=== PATIENT | male | born 1955 | race Caucasian/White ===

== ENCOUNTER 2022-02-21 08:00 | Outpatient (RCR) | payer MEDICARE, OTHER, SELFPAY ==
--- NOTE | 2022-01-23 10:49 | PTOPEVAL1 ---
Assessment and note entered by Leeann Ng, PT, DPT Evaluation Information Assessment Status Evaluation Diagnosis R shoulder and upper back pain Onset chronic Subjective Information Pt states he has had issues with his R shoulder for a couple of years. He states this has not impaired his function now because he has learned to avoid the pain. He states he has never had great posture and he states when he is standing for too long he gets an achy pain in between his shoulders. He reports no pain at rest but a 7/10 at its worst . Reported Pain Level Pain Score 0: Self Report Assessment PT Clinical Summary Kush Kline presents to therapy today for his initial evaluation with a diagnosis of R shoulder and other chronic pain. Today he demonstrates functional ROM with active and passive limitations with end ROM. He demonstrates mild strength deficits on the R when compared to the L. He has forward and rounded posture with increased thoracic kyphosis and an increased forward head resting position. He demonstrates decreased cervical and thoracic mobility with palpation. Skilled physical therapy services are indicated to improve mobility, to manage pain, to improve strength, and to improve baseline mobility. Plan of Care Interventions Manual Therapy,Neuro Re-education,Patient/ Caregiver Educati,Therapeutic Activities, Therapeutic Exercise PT Services Indicated Yes Treatment Frequency and 2x/wk for 4 wks Duration These treatments will address the objective and functional deficits as defined above. The patient will be advanced safely and appropriately in order for the patient to progress towards his/her prior level of function. Additional exercises will be introduced and as well as a comprehensive home exercise program upon discharge, if needed, ?to ensure carryover of functional gains achieved in the clinic. This treatment plan has been reviewed and agreement upon by the patient.
--- NOTE | 2022-02-15 08:40 | PCPTNOTE ---
Patient called & cancelled scheduled appointment this date due to being out of town.
--- NOTE | 2022-02-21 08:46 | PTOPDC ---
Assessment and note entered by Leeann Ng, PT, DPT Evaluation Information Assessment Status Discharge Diagnosis R shoulder and upper back pain Onset chronic Subjective Information Pt states overall he states he is getting better. He states his neck is less stiff and his shoulder has less pain. He reports excellent compliance with his HEP. He states he is not sure how much his flexibility has improved. He states overall he has learned a lot in therapy. He reports 40% improvement in overall symptoms. He states qualitatively he has improved a lot. Reported Pain Level Pain Score 0,0: Self Report Assessment PT Clinical Summary Kush Kline presents to therapy today for his progress report following 6 visits of skilled therapy and participation in a home exercise program. Today he demonstrates minor improvements in his shoulder ROM and thoracic mobility. He reports a decrease in pain with little to no sharp stabbing pains in the last month. He states he would like to continue his HEP at home and possibly return in the summer if things have not improved the way he wants. He is to be discharged at this time with instructions to continue her HEP . If he is to return in the future he will need a new order. Plan of Care PT Services Indicated No Treatment Frequency and to be discharged Duration
== END 2022-02-22 15:41 | disposition home or self-care (01) ==
LOC: ANHGOSHPT 08:00
PROVIDERS: PCP Family Medicine; Visit Provider Family Medicine
DX: M25.511 Pain in right shoulder (principal); G89.29 Other chronic pain; M67.80 Other specified disorders of synovium and tendon, unspecified site
CPT/HCPCS: 97110; 97112; 97140; 97161

== ENCOUNTER 2022-05-16 11:39 | Emergency (ER) | payer MEDICARE, SELFPAY ==
[2022-05-16 11:52] VITALS: BP 137/93; PULSE 68; RESP 16; TEMP 36.2; O2SAT 100
--- NOTE | 2022-05-16 12:15 | ED.URI ---
HPI - URI/Sore Throat General Chief Complaint: Upper Respiratory Infection Stated Complaint: cough,congestion, rt eye infection Time Seen by Provider: 05/16/22 12:14 Source: patient Mode of arrival: ambulatory Limitations: no limitations History of Present Illness HPI Narrative: patient is 66-year-old male that presents with cough, sore throat, right eye irritation and discharge. Patient states cough and sore throat started 3 days ago. And today right eye started using and became itchy. Reports grandson was recently diagnosed with strep. Has been taking dull some and NyQuil for symptoms with mild to no relief. denies any fever, chills, ear pain, and shortness of breath. Related Data Home Medications Medication Instructions Recorded Confirmed cetirizine 10 mg tablet 10 mg PO DAILY PRN Allergy Symptoms 01/03/22 05/16/22 Allergies Allergy/AdvReac Type Severity Reaction Status Date / Time No Known Allergies Allergy Mild Verified 05/16/22 12:02 Review of Systems Review of Systems: All systems reviewed & are unremarkable except as noted in HPI and below Constitutional: Constitutional: Denies body ache(s), Denies fever(s), Denies headache(s), Denies malaise and Denies weakness Eyes: Eyes: Reports eye discharge, Reports irritation and Denies loss of vision ENT: Denies otalgia, Reports headache(s), Denies nasal congestion, Denies sinus pain and Reports sore throat Cardiovascular: Cardiovascular: Denies chest pain, Denies irregular heart rhythm and Denies dyspnea Respiratory: Respiratory: Reports cough and Denies dyspnea Gastrointestinal: Gastrointestinal: Denies abdominal pain, Denies melena, Denies hematochezia, Denies diarrhea, Denies nausea and Denies vomiting Musculoskeletal: Musculoskeletal: Denies back pain, Denies myalgias and Denies arthralgias Integumentary/Breasts: Skin/Breast: Denies pruritus and Denies rash Neurologic: Denies headache(s), Denies loss of vision and Denies weakness Psychiatric: Psychiatric: Reports no additional psychiatric complaints PMFSH Past Medical History Medical History Basal cell carcinoma (~06/2020) Diaphragmatic hernia without mention of obstruction or gangrene Gastritis/duodenitis HTN (hypertension) Mixed hyperlipidemia Nummular eczema Rotator cuff syndrome of right shoulder Family History Family History Mother Hypertension Father Family history of cardiovascular disease Family history of lung cancer Social History Social History (Updated 01/03/22 @ 13:32 by Augustus Baldwin MA) Smoking status: Never smoker Alcohol intake: current Substance use: never Lack of Transportation: No Lack of Food: Never True Current Housing: I Have Housing Concerned About Future Housing: No Difficulty Paying Gas/Electric Bills: No Difficulty Paying for Meds: No Currently Unemployed: No Difficulty w/ Childcare or Family Care: No Comments At time of signature, agree with nursing past medical, surgical, social and family history. There is no relevant family history pertinent to the presenting complaint. Exam Const: General: cooperative, healthy appearing, comfortable, no acute distress and well nourished Nutritional Appearance: well nourished Orientation/consciousness: patient oriented x3 Limitations: no limitations HENMT: Head: normal to inspection, normocephalic and atraumatic Ears: external ears normal and TM abnormal obstructed by cerumen bilateral Face/Nose/Sinus: Normal external nose present, normal facial exam, sinuses nontender and face symmetric Face and sinus: normal facial exam, sinuses nontender and face symmetric Mouth: Yes Normal oral and palatal mucosa present, Yes lip normal and Yes moist mucous membranes Teeth and gingiva: dentition normal Throat: posterior oropharynx normal, tonsils normal and uvula midline Eyes: General: appearanc
== END 2022-05-16 12:37 | disposition home or self-care (01) ==
PROVIDERS: Emergency Provider Nurse Practitioner Family; PCP Family Medicine
DX: H10.9 Unspecified conjunctivitis (principal); H61.20 Impacted cerumen, unspecified ear; I10 Essential (primary) hypertension; E78.2 Mixed hyperlipidemia; Z85.828 Personal history of other malignant neoplasm of skin
CPT/HCPCS: 87081; 87880; 99213; G0463

== ENCOUNTER 2022-06-26 09:37 | Emergency (ER) | payer MEDICARE, SELFPAY ==
[2022-06-26 09:46] VITALS: BP 130/85; PULSE 66; RESP 16; TEMP 36.4; O2SAT 100
--- NOTE | 2022-06-26 10:00 | ED.EYEPROB ---
HPI - Eye Problem General Chief complaint: Eye Problems Stated complaint: pink eye Time Seen by Provider: 06/26/22 10:00 Source: patient Mode of arrival: ambulatory Limitations: no limitations History of Present Illness HPI Narrative: Mr. Pacheco is a 67-year-old male patient presenting to the clinic today with complaints of possible right-sided conjunctivitis. He states his grand kids had conjunctivitis and give it to him. States that he used ofloxacin but does not think that this a got rid of the infection and entirely. States he noted some pus in his eye and his eye was matted shut this morning. Eye is very itchy and red. Related Data Home Medications Medication Instructions Recorded Confirmed fexofenadine 30 mg tablet 60 mg PO DAILY 06/26/22 06/26/22 Allergies Allergy/AdvReac Type Severity Reaction Status Date / Time No Known Allergies Allergy Mild Verified 06/26/22 09:53 Review of Systems Review of Systems: Pertinent positives per HPI. Patient denies any fever, chills, rash, headache, visual changes, dizziness, cough, runny nose, sore throat, shortness of breath, chest pain, palpitations, nausea, vomiting, diarrhea, constipation, abdominal pain, or any urinary issues. [facility] Past Medical History Medical History Basal cell carcinoma (~06/2020) Diaphragmatic hernia without mention of obstruction or gangrene Gastritis/duodenitis HTN (hypertension) Mixed hyperlipidemia Nummular eczema Rotator cuff syndrome of right shoulder Family History Family History Mother Hypertension Father Family history of cardiovascular disease Family history of lung cancer Social History Social History Smoking status: Never smoker Alcohol intake: current Substance use: never Lack of Transportation: No Lack of Food: Never True Current Housing: I Have Housing Concerned About Future Housing: No Difficulty Paying Gas/Electric Bills: No Difficulty Paying for Meds: No Currently Unemployed: No Difficulty w/ Childcare or Family Care: No Comments At the time of my signature, I reviewed and agree with the nursing past medical, surgical, social, and family history. There is no relevant family history pertinent to the patient complaint. Exam Narrative: General: Well-developed, well nourished, in no apparent distress Head: Normocephalic, atraumatic Eyes: Pupils equally round and reactive to light bilaterally, EOM intact, left sclera and conjunctive clear, right sclera and conjunctiva injected with mild lid swelling and yellow mucopurulent discharge. Ears: Bilateral ear canals impacted with cerumen, ear irrigation performed bilaterally, TMs intact and clear, ear canals clear without sign of trauma after irrigation, no drainage, improved hearing bilaterally. Nose: Nares patent, no discharge, no inflammation, no sinus tenderness. Mouth: Oropharynx without lesions or masses, good dentition, MMM. Neck: Supple, trachea midline, no enlargement of anterior or posterior cervical nodes, no thyroid masses or goiter palpable. Cardio: Regular rate and rhythm, s1 and s2 normal, no murmur appreciated. Resp: Clear to auscultation bilaterally anteriorly and posteriorly, no rhonchi, rales, wheezing or rubs Course Course Emergency Course: Portions of this record may have been created with voice recognition software. Level of Care: Express Care Visit Vital Signs Vital signs: Vital Signs Temperature 36.4 C 06/26/22 09:46 Pulse Rate 66 06/26/22 09:46 Respiratory Rate 16 06/26/22 09:46 Blood Pressure 130/85 06/26/22 09:46 Pulse Oximetry 100 06/26/22 09:46 Oxygen Delivery Room Air 06/26/22 09:46 Temperature 36.4 C 06/26/22 09:46 Pulse Rate 66 06/26/22 09:46 Respiratory Rate 16 06/26/22 09:46 Bl
== END 2022-06-26 10:26 | disposition home or self-care (01) ==
PROVIDERS: Emergency Provider Nurse Practitioner Family; PCP Family Medicine
DX: H10.31 Unspecified acute conjunctivitis, right eye (principal); H61.23 Impacted cerumen, bilateral; I10 Essential (primary) hypertension; E78.5 Hyperlipidemia, unspecified; Z85.828 Personal history of other malignant neoplasm of skin
CPT/HCPCS: 69210; 99213; G0463

== ENCOUNTER 2022-10-12 12:42 | Outpatient (CLI) | payer MEDICARE, SELFPAY | END 2022-10-12 12:43 | disposition home or self-care (01) | LOC: ANHAUDASC 12:43 | PROVIDERS: PCP Family Medicine; Visit Provider Otolaryngology | DX: H69.90 Unspecified Eustachian tube disorder, unspecified ear (principal) | CPT/HCPCS: 92557; 92567 ==

== ENCOUNTER → 2022-11-21 10:23 | Outpatient (CLI) | payer MEDICARE, SELFPAY ==
--- NOTE | ~2022-11-21 | XR_ITS ---
XR chest 2V DATE: 11/21/2022 10:49 INDICATION: Localized enlarged lymph nodes TECHNIQUE: 2 views COMPARISON: None FINDINGS: Chronic mild loss of height and anterior wedging of several midthoracic vertebral bodies. D egenerative spurring of the thoracic spine. Normal heart size. No hilar or mediastinal enlargement. No pulmonary infiltrate or consolidation, pleural effusion or pulmonary vascular congestion or pneumo thorax is detected. IMPRESSION: No active cardiopulmonary disease Reviewed, dictated and finalized at location [facility].
== END ==
PROVIDERS: PCP Family Medicine; Visit Provider Family Medicine
DX: R59.0 Localized enlarged lymph nodes (principal)
CPT/HCPCS: 71046

== ENCOUNTER → 2022-11-28 14:22 | Outpatient (CLI) | payer MEDICARE, SELFPAY ==
--- NOTE | ~2022-11-28 | CT_ITS ---
CT scan of the Neck Technique: 2.5 mm axial scans were obtained through the neck without IV contrast administration. Janey nal and sagittal reconstructions of the neck were obtained. Dose reduction technique was used on this scan by utilizing automated exposure control and iterative reconstruction technique. The dose-length product (DLP) was 470.71 mGy-cm. Clinical History: Abnormal lymph node Findings: There is a 2.5 x 2.1 cm enlarged right level 2 lymph node along the anteromedial margin of the sterno cleidomastoid muscle (axial image 65). There are multiple additional shotty to mildly enlarged right cervical chain lymph nodes. Single mildly prominent left level 2 lymph node measures 1.4 x 1.6 cm (ax ial image 63). Parapharyngeal spaces appear normal bilaterally. The parotid and submandibular glands appear normal. The pharyngeal mucosal spaces appear normal. No soft tissue masses are seen in the neck. The thyroid gland appears normal. Images of the lung apices reveal no abnormalities. There is a possi ble 5 mm polyp versus mucus along the posterior wall of the trachea (series 4 image 32). Impression: Cervical lymphadenopathy, predominantly right-sided, as detailed above. Dominant node is a right leve l 2 node measuring 2.5 x 2.1 cm. Biopsy recommended to establish a histologic diagnosis. Likely diagn ostic considerations would include lymphoma versus other metastatic disease. Reviewed, dictated and finalized at [facility]. Impression: Cervical lymphadenopathy, predominantly right-sided, as detailed above. Dominan t node is a right level 2 node measuring 2.5 x 2.1 cm. Biopsy recommended to es tablish a histologic diagnosis. Likely diagnostic considerations would include lymphoma versus other metastatic disease.
== END ==
PROVIDERS: PCP Family Medicine; Visit Provider Family Medicine
DX: D61.818 Other pancytopenia (principal); R59.0 Localized enlarged lymph nodes
CPT/HCPCS: 70490

== ENCOUNTER 2022-12-06 08:54 | Outpatient (CLI) | payer MEDICARE, SELFPAY ==
--- NOTE | ~2022-12-06 | US_ITS ---
EXAMINATION: US biopsy lymph node DATE: 12/06/2022 09:49 INDICATION: Palpable right cervical lymphadenopathy TECHNIQUE: The procedure including the risks and benefits was discussed with the patient. Risks discu ssed included bleeding and infection. The patient understood the risks and agreed to proceed. The sk in overlying the right neck was prepped and draped in usual sterile fashion. Anesthetic was administ ered with 1% lidocaine subcutaneously. An 18 gauge core biopsy needle was advanced under continuous ultrasound observation to the lesion of interest. 8 core biopsy specimens were obtained, 5 placed in RPMI media and 3 and formalin. The needle was removed and the entry site was cleaned and dressed. Post procedure ultrasound demonstrated no hemorrhage. FINDINGS: Ultrasound images demonstrate multiple enlarged and atypical round right cervical lymph nod es the largest along the caudal margin of the parotid measuring 3.2 x 2.0 x 2.5 cm. Subsequent images demonstrate the biopsy needle advanced into this lymph node. IMPRESSION: 1. Successful Ultrasound-guided biopsy of a 3.2 x 2.0 x 2.5 cm right infraparotid lymph node. Reviewed, dictated and finalized at location A. IMPRESSION: 1. Successful Ultrasound-guided biopsy of a 3.2 x 2.0 x 2.5 cm right infraparot id lymph node.
== END 2022-12-06 08:55 | disposition home or self-care (01) ==
PROVIDERS: PCP Family Medicine; Visit Provider Family Medicine
DX: D61.818 Other pancytopenia (principal); R59.0 Localized enlarged lymph nodes
CPT/HCPCS: 38505; 76942; 88305

== ENCOUNTER 2022-12-07 14:21 | Outpatient (CLI) | payer MEDICARE, SELFPAY ==
[2022-12-07 14:40] LABS: Eosinophils Percent Auto 0.3 % (0-4.4); Hematocrit 36.8 % (42.0-52.0); Hemoglobin 12.7 g/dL (14.0-18.0); Immature Granulocyte Absolute 0.02 K/mm3 (0.00-0.031); Immature Granulocyte Percent A 0.5 % (0-0.5); Lymphocytes Absolute Auto 0.96 K/mm3 (0.9-3.2); Lymphocytes Percent Auto 26.2 % (18.3-44.2); Mean Corpuscular HGB Conc 34.5 g/dl (32-36); Mean Corpuscular Hemoglobin 31.2 pg (26-34); Mean Corpuscular Volume 90.4 fl (80-100); Mean Platelet Volume 9.7 fl (7.4-10.4); Monocytes Absolute Auto 0.7 K/mm3 (0.1-0.6); Monocytes Percent Auto 20.2 % (2.6-8.5); Neutrophils Absolute Auto 1.9 K/mm3 (1.3-6.7); Neutrophils Percent Auto 52.8 % (45.5-73.1); Platelet Count Result 110 k/mm3 (150-375); Red Blood Count 4.07 M/mm3 (4.6-6.20); Red Cell Distribution Width 12.5 % (11.5-14.5); White Blood Count 3.7 K/mm3 (4.5-10.0)
[2022-12-07 17:50] LABS: Alanine Aminotransferase 24 U/L (6-50); Albumin Level 4.2 g/dL (3.5-5.1); Alkaline Phosphatase 48 U/L (38-126); Anion Gap 5 mmol/L (8-16); Aspartate Amino Transferase 28 U/L (17-59); Bilirubin,Total 0.6 mg/dL (0.2-1.3); Blood Urea Nitrogen 17 mg/dL (9-20); Calcium 8.9 mg/dL (8.4-10.2); Carbon Dioxide 34 mmol/L (22-30); Chloride 99 mmol/L (98-107); Estimated Glomerular Filt Rate > 60; Glucose 101 mg/dL (65-110); Lactate Dehydrogenase 187 U/L (120-246); Potassium 3.7 mmol/L (3.4-5.0); Sodium 138 mmol/L (137-145)
[2022-12-07 18:55] LABS: Folic Acid 16.7 ng/mL (2.76->20)
[2022-12-07 20:34] LABS: Iron 81 ug/dL (49-181)
[2022-12-07 20:44] LABS: Percent Iron Saturation 27 % (20-50)
== END 2022-12-07 14:22 | disposition home or self-care (01) ==
PROVIDERS: PCP Family Medicine; Visit Provider Internal Medicine Hematology & Oncology
DX: C85.91 Non-Hodgkin lymphoma, unspecified, lymph nodes of head, face, and neck (principal); D64.9 Anemia, unspecified
CPT/HCPCS: 36415; 80053; 82607; 82728; 82746; 83540; 83550; 83615; 85025; 88184

== ENCOUNTER 2024-01-22 11:00 | Outpatient (RCR) | payer MEDICARE, SELFPAY ==
--- NOTE | 2023-10-26 11:42 | OPREHPOC ---
Outpatient Therapy Plan of Care This is a Multidisciplinary Plan of Care that may contain components documented by all disciplines (PT, OT, and ST.) PT Problem 1 PT Problem #1 Knowledge Deficit PT Goal 1 Goal / Goal Update Pt to be IND with issued HEP Target Visit 8 PT Problem 2 PT Problem #2 Pain PT Goal 1 Goal / Goal Update Pt to report neck pain no greater than 3/10 in the last week. Target Visit 8 PT Goal 1 Goal / Goal Update Pt to improve yi cervical rotation to 60 deg to improve ability to drive. Target Visit 8 PT Goal 2 Goal / Goal Update Pt to improve active R shoulder abduction to 150 deg Target Visit 8
--- NOTE | 2023-10-26 11:42 | PTOPEVAL1 ---
Assessment and note entered by Leeann Ng, PT, DPT Evaluation Information Assessment Status Evaluation Diagnosis R shoulder and neck pain ICD-10 Condition Codes (PT) Cervicalgia M54.2,M25.511 Subjective Information Pt was seen about a year and a half ago for R shoulder pain, he progressed well and did not have any issues. Last fall pt had lymphoma and completed a couple of rounds of chemotherapy. He states since finishing chemo he feels deconditioned and limited compared to his baseline . Pt reports neck stiffness, subpar posture, chest stiffness, decreased LE ROM, and intermittent neuropathy in his yi feet. Reported Pain Level Pain Score 0: Self Report Assessment PT Clinical Summary Pt presents to therapy today for his initial evaluation with a diagnosis of neck and R shoulder pain, he has a recent PMH of cancer with 6 months of chemotherapy. Today he demonstrates decreased cervical ROM in all directions, decreased R shoulder motion compared to his L shoulder, and has forward and rounded shoulders with increase thoracic kyphosis. His yi shoulder strength is maintained. Upon palpation he has decreased thoracic and cervical joint mobility. Skilled therapy services are indicated to address the deficits noted above, to improve mobility, and to return to PLOF. Plan of Care Interventions Electrical Stimulation,Hot Pack/Cold Pack,Manual Therapy,Neuro Re-education,Patient/Caregiver Educati,Therapeutic Activities,Therapeutic Exercise PT Services Indicated Yes Treatment Frequency and 2x/wk for 8 visits Duration These treatments will address the objective and functional deficits as defined above. The patient will be advanced safely and appropriately in order for the patient to progress towards his/her prior level of function. Additional exercises will be introduced and as well as a comprehensive home exercise program upon discharge, if needed, ?to ensure carryover of functional gains achieved in the clinic. This treatment plan has been reviewed and agreement upon by the patient.
--- NOTE | 2023-12-04 13:08 | PTOPPROG ---
Assessment and note entered by Leeann Ng, PT, DPT Evaluation Information Assessment Status Progress Diagnosis R shoulder and neck pain ICD-10 Condition Codes (PT) Cervicalgia M54.2,M25.511 Subjective Information Pt states he has been going to the chiropractor one time a week in conjunction with therapy. He states he is progressing well. States he will get intermittent neck pains that feels sharp but does not last long. Reports his shoulder ROM has improved a lot. Assessment PT Clinical Summary Pt presents to therapy today for his progress report following 8 of skilled therapy to treat his diagnosis of neck and R shoulder pain, he has a recent PMH of cancer with 6 months of chemotherapy . Today he demonstrates improved active shoulder ROM in all planes of motion but ext rot is still significantly limited, his cervical ROM is making mild progress. He continues to have has forward and rounded shoulders with increase thoracic kyphosis. Continuation of skilled therapy services are indicated to address the deficits noted above , to improve mobility, and to return to PLOF. Plan of Care Interventions Electrical Stimulation,Hot Pack/Cold Pack,Manual Therapy,Neuro Re-education,Patient/Caregiver Educati,Therapeutic Activities,Therapeutic Exercise PT Services Indicated Yes Treatment Frequency and 1x/wk for 8 visits Duration These treatments will address the objective and functional deficits as defined above. The patient will be advanced safely and appropriately in order for the patient to progress towards his/her prior level of function. Additional exercises will be introduced and as well as a comprehensive home exercise program upon discharge, if needed, ?to ensure carryover of functional gains achieved in the clinic. This treatment plan has been reviewed and agreement upon by the patient.
--- NOTE | 2024-01-22 13:18 | PTOPDC ---
Assessment and note entered by Leeann Ng, PT, DPT Evaluation Information Assessment Status Dishcarge Diagnosis R shoulder and neck pain ICD-10 Condition Codes (PT) Cervicalgia M54.2,M25.511 Subjective Information Pt states he is doing good, he reports excellent compliance with his HEP. He states he has progressed his exercise program to more resistance band exercises. He states he feels like he is ready to get back to [employer] and swimming. He states he feels like overall he is doing really well, he has no pain on a regular pain reports, and has gotten back to all the things he likes to do. Reported Pain Level Pain Score 0: Self Report Assessment PT Clinical Summary Pt presents to therapy today for his progress report following 15 of skilled therapy to treat his diagnosis of neck and R shoulder pain, he has a recent PMH of cancer with 6 months of chemotherapy. Today he demonstrates improved cervical and shoulder ROM, improved pain reports and improved functional mobility. He has met or progressed well towards his therapy goals. He no longer requires skilled therapy services and will be d/c'ed at this time.
== END 2024-01-22 13:32 | disposition home or self-care (01) ==
LOC: ANHGOSHPT 11:00
PROVIDERS: PCP Family Medicine; Visit Provider Student in an Organized Health Care Education/Training Program
DX: M25.511 Pain in right shoulder (principal); M54.2 Cervicalgia; M67.811 Other specified disorders of synovium, right shoulder; R29.898 Other symptoms and signs involving the musculoskeletal system
CPT/HCPCS: 97110; 97140; 97161; 97530

== ENCOUNTER 2024-07-15 10:33 | Outpatient (CLI) | payer MEDICARE, SELFPAY ==
--- NOTE | ~2024-07-15 | XR_ITS ---
Clinical Indication: Cough PA and lateral views of the chest: Comparison: 11/21/2022 Findings: The lungs are clear, without evidence of focal consolidation or pleural effusion. Cardiome diastinal silhouette is within normal limits. Bones and soft tissues are unremarkable. Impression: Normal chest. Reviewed, dictated and finalized at location . Impression: Normal chest.
== END 2024-07-15 10:34 | disposition home or self-care (01) ==
LOC: GOSHIMG 10:34
PROVIDERS: Visit Provider Family Medicine
DX: R05.9 Cough, unspecified (principal)
CPT/HCPCS: 71046